=== PATIENT | female | born 1990 | race American Indian/Alaskan Native ===

== ENCOUNTER 2016-06-01 13:25 | Emergency (ER) | payer SELFPAY ==
[2016-06-01 14:02] VITALS: BP 108/73
--- NOTE | 2016-06-01 15:19 | XRay Report ---
FINAL REPORT EXAM: XR ANKLE 2V LT HISTORY: swelling TECHNIQUE: Three views left ankle PRIORS: None. FINDINGS: No fracture is identified. No dislocation seen. Ankle mortise is intact no evidence of joint space widening. No erosive or degenerative changes are identified. No evidence of joint effusion. IMPRESSION: Negative ankle series
--- NOTE | 2016-06-01 19:36 | Emergency Department Report ---
Entered by CITLALLI AMADO, acting as scribe for GREG GARCIA PA. ED Lower Extremity HPI - General Chief Complaint: Extremity Injury, Lower Stated Complaint: LEFT ANKLE SWELLING Time Seen by Provider: 06/01/16 14:19 Source: patient Mode of arrival: Ambulatory Limitations: No Limitations - History of Present Illness Initial Comments: 26 year old female with no significant PMHx presents to the ED c/o left ankle pain and swelling that began 2 weeks ago, worsening a week ago. Rates left ankle pain an 8/10 in severity and throbbing in quality. Denies any left ankle injury, chest pain, SOB, numbness, and tingling. Pain worsens with movement, walking, and palpation. Patient reports applying Bengay at home with no relief. Denies tobacco use and alcohol consumption. LMP 05/02/2016. Complaint: other (left ankle pain and edema) Onset/Timin -: week(s) Injury: Ankle: Left (left ankle pain/edema, but no left ankle injury) Type of Injury: unknown Place: home Severity: moderate Severity scale (0 -10): 8 Improves With: nothing (applied Bengay with no relief) Worsens With: weight bearing, movement, palpation Context: other (unknown) Associated Symptoms: swelling (left ankle), able to partially bear weight. denies: numbness, tingling, other (chest pain, SOB) Treatments Prior to Arrival: cold therapy - Related Data Home Medications Medication Instructions Recorded Confirmed Last Taken Pnv with Ca,No.72/Iron/FA 1 tab PO DAILY 02/12/13 02/12/13 02/12/13 08:00 [ Plus Tablet] Previous Rx's Medication Instructions Recorded Last Taken Type hydrOXYzine HCL [Atarax] 25 mg PO Q6HR PRN #20 tablet 06/22/15 Unknown Rx methylPREDNISolone [Medrol] 4 mg PO QAM #1 tab.ds.pk 06/22/15 Unknown Rx Doxycycline [Vibramycin CAP] 100 mg PO Q12HR #28 capsule 04/21/16 Unknown Rx Nitrofurantoin [place]/M-Cryst 100 mg PO Q12HR #14 capsule 04/21/16 Unknown Rx [Macrobid CAP] metroNIDAZOLE [Flagyl TAB] 500 mg PO Q12HR #14 tab 04/21/16 Unknown Rx Ibuprofen [Motrin] 600 mg PO Q8H PRN #15 tablet 06/01/16 Unknown Rx Allergies Allergy/AdvReac Type Severity Reaction Status Date / Time No Known Allergies Allergy Verified 04/21/16 15:09 ED Review of Systems Comment: All other systems reviewed and negative Constitutional: denies: chills, fever ENT: denies: throat pain Respiratory: no symptoms reported. denies: cough, orthopnea, shortness of breath, SOB with exertion, SOB at rest Cardiovascular: denies: chest pain, palpitations, edema, syncope Gastrointestinal: denies: abdominal pain, nausea, vomiting Musculoskeletal: joint swelling (left ankle), arthralgia, other (left ankle pain ). denies: back pain Skin: denies: rash Neurological: denies: headache, numbness, paresthesias, confusion, abnormal gait , vertigo ED Past Medical Hx - Past Medical History Previous Medical History?: No Hx Seizures: No - Surgical History Past Surgical History?: No - Family History Family history: no significant - Social History Smoking Status: Never Smoker Substance Use Type: Non Opiate Pain, Other - Medications Home Medications: Home Medications Medication Instructions Recorded Confirmed Last Taken Type Pnv with Ca,No.72/Iron/FA 1 tab PO DAILY 02/12/13 02/12/13 02/12/13 08:00 History [ Plus Tablet] hydrOXYzine HCL [Atarax] 25 mg PO Q6HR PRN #20 tablet 06/22/15 Unknown Rx methylPREDNISolone [Medrol] 4 mg PO QAM #1 tab.ds.pk 06/22/15 Unknown Rx Doxycycline [Vibramycin CAP] 100 mg PO Q12HR #28 capsule 04/21/16 Unknown Rx Nitrofurantoin [place]/M-Cryst 100 mg PO Q12HR #14 capsule 04/21/16 Unknown Rx [Macrobid CAP] metroNIDAZOLE [Flagyl TAB] 500 mg PO Q12HR #14 tab 04/21/16 Unknown Rx Ibuprofen [Motrin] 600 mg PO Q8H PRN #15 tablet 06/01/16 Unknown Rx ED Physical Exam - General Limitations: No Limitations General appearance: alert, in no apparent distress - Head Head exam: Present: atraumatic, normocephalic, normal inspection - Eye Eye exam: Present: normal appearance, EOMI Pupils: Present: normal accommodation - ENT ENT exam: Present: normal exam, normal orophraynx, mucous membranes moist, TM's normal bilaterally, normal external ear exam - Neck Neck exam: Present: normal inspection, full ROM. Absent: tenderness, lymphadenopathy - Respiratory Respiratory exam: Present: normal lung sounds bilaterally. Absent: respiratory distress, wheezes, rales, rhonchi, chest wall tenderness - Cardiovascular Cardiovascular Exam: Present: regular rate, normal rhythm, normal heart sounds, other (S1/S2) - GI/Abdominal GI/Abdominal exam: Present: soft, normal bowel sounds. Absent: distended, tenderness, guarding, rebound, rigid - Extremities Exam Extremities exam: Present: normal inspection, tenderness (left lateral ankle), normal capillary refill, joint swelling. Absent: full ROM (pain with plantar flexion), pedal edema, calf tenderness - Expanded Lower Extremity Exam Left Hip exam: Present: normal inspection, full ROM, pelvic stability. Absent: tenderness, swelling, abrasion, laceration, ecchymosis, deformity, crepidus, dislocation, erythema, external rotation, internal rotation, shortening Upper Leg exam: Present: normal inspection, full ROM. Absent: tenderness, swelling, abrasion, laceration, ecchymosis, deformity, crepidus, dislocation, erythema Knee exam: Present: normal inspection, full ROM, full knee extension. Absent: tenderness, swelling, abrasion, laceration, ecchymosis, deformity, crepidus, dislocation, erythema, effusion, pain w/ pronation/supination Lower Leg exam: Present: normal inspection, full ROM. Absent: tenderness Ankle exam: Present: tenderness (left lateral), swelling (moderate left lateral ankle). Absent: full ROM (pain with plantar flexion, but not with dorsal flexion), abrasion, laceration, ecchymosis, deformity, crepidus, dislocation, erythema Foot/Toe exam: Present: normal inspection, full ROM. Absent: tenderness, swelling, abrasion, ecchymosis, deformity, crepidus, dislocation, erythema, amputation, puncture wound, foreign body, calcaneal tenderness, tenderness at base of 5th metatarsal, nail avulsion, subungual hematoma Neuro vascular tendon exam: Present: no vascular compromise, significant pain with passive ROM of distal joint. Absent: pulse deficit, abnormal cap refill, motor deficit, sensory deficit, tendon deficit, extremity cold to touch, pallor , abnormal 2-point discrimination, decreased fine/light touch, foot drop, peroneal nerve deficit Gait: Positive: antalgic - Back Exam Back exam: Present: normal inspection, full ROM. Absent: tenderness, CVA tenderness (R), CVA tenderness (L), muscle spasm, paraspinal tenderness, vertebral tenderness, rash noted - Neurological Exam Neurological exam: Present: alert, oriented X3, normal gait, reflexes normal. Absent: motor sensory deficit - Psychiatric Psychiatric exam: Present: normal affect, normal mood - Skin Skin exam: Present: warm, dry, intact, other (left ankle edema and TTP). Absent : rash ED Course Vital Signs 06/01/16 13:58 Temperature 97.8 F Pulse Rate 64 Respiratory 20 Rate Blood Pressure 108/73 O2 Sat by Pulse 98 Oximetry - Reevaluation(s) Reevaluation #1: 06/01/16 19:35 Refuses motrin - Orthopedic Splinting/Casting Injury #1 Side: left Lower Extremity Injury Location: ankle Lower Extremity Immobilizer: Iglesia wrap ED Lower Extremity MDM - Radiology Data Radiology results: report reviewed X-ray of left ankle revealed no acute findings. - Medical Decision Making ED course: She did not want any pain medication in emergency room. She is with left outer ankle swelling which appears to be ankle sprain but cannot remember injuring her ankle. Ankle is tender to palpate with mild swelling. Low risk group for DVT. Unlikely according to [facility] DVT studies. The risk for PE based on protocol. See procedure note for splinting patient discharged home with prescription for Motrin and to rest, ice, compress and elevate area and follow- up with orthopedic doctor in the next 2-3 days. ED Disposition Clinical Impression: Arthralgia of left ankle Left ankle sprain Qualifiers: Encounter type: initial encounter Involved ligament of ankle: unspecified ligament Qualified Code(s): S93.402A - Sprain of unspecified ligament of left ankle, initial encounter Disposition: DISCHARGED TO HOME OR SELFCARE Is pt being admited?: No Does the pt Need Aspirin: No Condition: Stable Instructions: Ankle Sprain (ED), Arthralgia (ED), Ankle Exercises (GEN) Additional Instructions: Please rest, ice, compress and elevate the area for the next couple days. Follow-up with orthopedic doctor in 2-3 days. Prescriptions: Ibuprofen [Motrin] 600 mg PO Q8H PRN #15 tablet PRN Reason: Pain Referrals: JAMAL PEÑA MD [Staff Physician] - 3-5 Days [facility], [Primary Care Provider] - 2-3 Days [facility] [Outside] - 2-3 Days Forms: Work/School Release Form(ED) This documentation as recorded by the [employer] lu JASMINE,accurately reflects the service I personally performed and the decisions made by me,GREG GARCIA PA.
== END 2016-06-01 15:59 | disposition home or self-care (01) ==
LOC: ED 13:25
DX: S93.402A Sprain of unspecified ligament of left ankle, initial encounter (principal); X58.XXXA Exposure to other specified factors, initial encounter; Y93.89 Activity, other specified; Y92.89 Other specified places as the place of occurrence of the external cause; Y99.8 Other external cause status

== ENCOUNTER 2016-07-27 11:59 | Emergency (ER) | payer SELFPAY ==
[2016-07-27] MEDS ORDERED: ULTRAM PO ONE (12:43)
[2016-07-27] MEDS ORDERED: AUGMENTIN 875 MG PO ONE (12:49)
--- NOTE | 2016-07-27 12:54 | Emergency Department Report ---
ED ENT HPI - General Chief complaint: Earache Stated complaint: RT EAR BLEEDING /PAIN Time Seen by Provider: 07/27/16 12:33 Source: patient Mode of arrival: Ambulatory Limitations: No Limitations - History of Present Illness Initial comments: 26-year-old with no significant medical history presents to the hospital complains of right ear pain and bleeding upon waking up this morning. Patient denies putting any foreign bodies in her ear and denies any foreign body sensation currently. She did however admit to blowing her nose hard recently. Denies persistent cough or cold symptoms or fever. No reports of trauma. 10/26 right-sided constant ear pain. - Related Data Home Medications Medication Instructions Recorded Confirmed Last Taken Pnv with Ca,No.72/Iron/FA 1 tab PO DAILY 02/12/13 02/12/13 02/12/13 08:00 [ Plus Tablet] Previous Rx's Medication Instructions Recorded Last Taken Type hydrOXYzine HCL [Atarax] 25 mg PO Q6HR PRN #20 tablet 06/22/15 Unknown Rx methylPREDNISolone [Medrol] 4 mg PO QAM #1 tab.ds.pk 06/22/15 Unknown Rx Doxycycline [Vibramycin CAP] 100 mg PO Q12HR #28 capsule 04/21/16 Unknown Rx Nitrofurantoin [place]/M-Cryst 100 mg PO Q12HR #14 capsule 04/21/16 Unknown Rx [Macrobid CAP] metroNIDAZOLE [Flagyl TAB] 500 mg PO Q12HR #14 tab 04/21/16 Unknown Rx Ibuprofen [Motrin] 600 mg PO Q8H PRN #15 tablet 06/01/16 Unknown Rx Amoxicillin/K Clav Tab [Augmentin 1 tab PO Q12HR #20 tab 07/27/16 Unknown Rx 875 mg] traMADol [Ultram 50 MG tab] 50 mg PO Q6HR PRN #20 tablet 07/27/16 Unknown Rx Allergies Allergy/AdvReac Type Severity Reaction Status Date / Time No Known Allergies Allergy Verified 04/21/16 15:09 ED Dental HPI - General Chief complaint: Earache Stated complaint: RT EAR BLEEDING /PAIN Time Seen by Provider: 07/27/16 12:33 Source: patient Mode of arrival: Ambulatory Limitations: No Limitations - Related Data Home Medications Medication Instructions Recorded Confirmed Last Taken Pnv with Ca,No.72/Iron/FA 1 tab PO DAILY 02/12/13 02/12/1302/12/13 08:00 [ Plus Tablet] Previous Rx's Medication Instructions Recorded Last Taken Type hydrOXYzine HCL [Atarax] 25 mg PO Q6HR PRN #20 tablet 06/22/15 Unknown Rx methylPREDNISolone [Medrol] 4 mg PO QAM #1 tab.ds.pk 06/22/15 Unknown Rx Doxycycline [Vibramycin CAP] 100 mg PO Q12HR #28 capsule 04/21/16 Unknown Rx Nitrofurantoin [place]/M-Cryst 100 mg PO Q12HR #14 capsule 04/21/16 Unknown Rx [Macrobid CAP] metroNIDAZOLE [Flagyl TAB] 500 mg PO Q12HR #14 tab 04/21/16 Unknown Rx Ibuprofen [Motrin] 600 mg PO Q8H PRN #15 tablet 06/01/16 Unknown Rx Amoxicillin/K Clav Tab [Augmentin 1 tab PO Q12HR #20 tab 07/27/16 Unknown Rx 875 mg] traMADol [Ultram 50 MG tab] 50 mg PO Q6HR PRN #20 tablet 07/27/16 Unknown Rx Allergies Allergy/AdvReac Type Severity Reaction Status Date / Time No Known Allergies Allergy Verified 04/21/16 15:09 ED Review of Systems ROS: Stated complaint: RT EAR BLEEDING /PAIN Other details as noted in HPI Comment: All other systems reviewed and negative Other: Constitutional: No fevers chills or weight loss Eyes: No eye pain visual changes or discharge ENT: As per HPI Neck: Denies pain Respiratory: Denies cough wheezing shortness of breath Cardiovascular: Denies chest pain, palpitations, syncope GI: Denies abdominal pain : Denies dysuria Musculoskeletal: Denies back pain, joint swelling Skin: Denies rash, lesions, erythema Neurologic: Denies headache, numbness, weakness Psychiatric: Denies suicidal ideation, hallucinations ED Past Medical Hx - Past Medical History Previous Medical History?: Yes Hx Seizures: No Additional medical history: Vaginal dleivery x 2 - Surgical History Past Surgical History?: Yes Additional Surgical History: x 1 - Social History Smoking Status: Never Smoker Substance Use Type: None - Medications Home Medications: Home Medications Medication Instructions Recorded Confirmed Last Taken Type Pnv with Ca,No.72/Iron/FA 1 tab PO DAILY 02/12/13 02/12/13 02/12/13 08:00 History [ Plus Tablet] hydrOXYzine HCL [Atarax] 25 mg PO Q6HR PRN #20 tablet 06/22/15 Unknown Rx methylPREDNISolone [Medrol] 4 mg PO QAM #1 tab.ds.pk 06/22/15 Unknown Rx Doxycycline [Vibramycin CAP] 100 mg PO Q12HR #28 capsule 04/21/16 Unknown Rx Nitrofurantoin [place]/M-Cryst 100 mg PO Q12HR #14 capsule 04/21/16 Unknown Rx [Macrobid CAP] metroNIDAZOLE [Flagyl TAB] 500 mg PO Q12HR #14 tab 04/21/16 Unknown Rx Ibuprofen [Motrin] 600 mg PO Q8H PRN #15 tablet 06/01/16 Unknown Rx Amoxicillin/K Clav Tab [Augmentin 1 tab PO Q12HR #20 tab 07/27/16 Unknown Rx 875 mg] traMADol [Ultram 50 MG tab] 50 mg PO Q6HR PRN #20 tablet 07/27/16 Unknown Rx ED Physical Exam - General Limitations: No Limitations - Other Other exam information: General: No limitations, patient is alert in no acute distress Head exam: Atraumatic, normocephalic Eyes exam: Normal appearance, pupils equal reactive to light, extraocular movements intact ENT: Right year with blood noted in the canal and along the TM. Small perforation at approximately 4:00 Neck exam: Normal inspection, full range of motion, no meningismus nontender Respiratory exam: Clear to auscultation bilateral, no wheezes, rales, crackles Cardiovascular: Normal rate and rhythm, normal heart sounds Abdomen: Soft, nondistended, and nontender, with normal bowel sounds, no rebound, or guarding Extremity: Full range of motion normal inspection no deformity Back: Normal Inspection, full range of motion, no tenderness Neurologic: Alert, oriented x3, cranial nerves intact, no motor or sensory deficit Psychiatric: normal affect, normal mood Skin: Warm, dry, intact ED Course Vital Signs 07/27/16 12:06 Temperature 98.2 F Pulse Rate 81 Respiratory 16 Rate Blood Pressure 112/72 O2 Sat by Pulse 98 Oximetry - Reevaluation(s) Reevaluation #1: 07/27/16 12:52 Tramadol and Augmentin ordered ED Medical Decision Making - Medical Decision Making Patient has a perforated each or this could be due to blood in her nose really hard. She will be discharged with antibiotics and pain medication. Outpatient follow-up with ENT would be recommended - Differential Diagnosis otitis media, for body, trauma, perforation, otitis externa Critical Care Time: No Critical care attestation.: If time is entered above; I have spent that time in minutes in the direct care of this critically ill patient, excluding procedure time. ED Disposition Clinical Impression: Perforation of ear drum Qualifiers: Laterality: right Qualified Code(s): H72.91 - Unspecified perforation of tympanic membrane, right ear Disposition: TO HOME OR SELFCARE Is pt being admited?: No Does the pt Need Aspirin: No Condition: Stable Instructions: Ruptured Eardrum (ED) Additional Instructions: Follow-up with the ENT doctor provided. Take the medications as prescribed. Use a good Rx card to make it medication prescriptions more affordable. Prescriptions: Amoxicillin/K Clav Tab [Augmentin 875 mg] 1 tab PO Q12HR #20 tab traMADol [Ultram 50 MG tab] 50 mg PO Q6HR PRN #20 tablet PRN Reason: Pain Referrals: [facility] [Provider Group] - 3-5 Days NATALIE CEDILLO MD [Staff Physician] - 3-5 Days (ENT (ear nose throat) doctor) Time of Disposition: 12:57
[2016-07-27] MEDS ORDERED: NORCO 5/325 PO ONE (13:02)
[2016-07-27 13:12] VITALS: BP 104/64
== END 2016-07-27 13:22 | disposition home or self-care (01) ==
LOC: ED 11:59
DX: H72.91 Unspecified perforation of tympanic membrane, right ear (principal)
CPT/HCPCS: 99282

== ENCOUNTER 2016-08-17 18:06 | Emergency (ER) | payer SELFPAY ==
[2016-08-17 18:37] VITALS: BP 115/81
[2016-08-17] MEDS ORDERED: EAR WAX DROPS AU ONE (20:41)
--- NOTE | 2016-08-17 22:50 | Emergency Department Report ---
Entered by CITLALLI AMADO, acting as scribe for ANYA RICKS NP. ED ENT HPI - General Chief complaint: Earache Stated complaint: RT EAR PAIN/BLEEDING Time Seen by Provider: 08/17/16 20:24 Source: patient Mode of arrival: Ambulatory Limitations: No Limitations - History of Present Illness Initial comments: 26 y/o female with no significant PMHx presents to the ED c/o sharp right ear pain that began this morning. Rates pain a 10/10 in severity. Patient states she was seen in this ED one month ago and was diagnosed with a "hole in right ear brain." Patient reports associated white drainage and blood from right ear, but she denies fever, chills, nausea, vomiting, hearing loss, headache, numbness , and tingling. Took Motrin with no relief. Notes she has an appointment with an ENT specialist in 3 months. NKDA. FUENTES complaint: ear pain (right) -: This morning Location: R ear Severity: severe Severity scale (0 -10): 10 Quality: sharp Consistency: constant Improves with: none Worsens with: none Associated Symptoms: discharge from ear (white discharge and blood). denies: fever, cough, toothache, pain with swallowing, sore throat, hearing loss, rhinorrhea - Related Data Home Medications Medication Instructions Recorded Confirmed Last Taken Pnv with Ca,No.72/Iron/FA 1 tab PO DAILY 02/12/13 02/12/13 02/12/13 08:00 [ Plus Tablet] Previous Rx's Medication Instructions Recorded Last Taken Type hydrOXYzine HCL [Atarax] 25 mg PO Q6HR PRN #20 tablet 06/22/15 Unknown Rx methylPREDNISolone [Medrol] 4 mg PO QAM #1 tab.ds.pk 06/22/15 Unknown Rx Doxycycline [Vibramycin CAP] 100 mg PO Q12HR #28 capsule 04/21/16 Unknown Rx Nitrofurantoin [place]/M-Cryst 100 mg PO Q12HR #14 capsule 04/21/16 Unknown Rx [Macrobid CAP] metroNIDAZOLE [Flagyl TAB] 500 mg PO Q12HR #14 tab 04/21/16 Unknown Rx Ibuprofen [Motrin] 600 mg PO Q8H PRN #15 tablet 06/01/16 Unknown Rx Amoxicillin/K Clav Tab [Augmentin 1 tab PO Q12HR #20 tab 07/27/16 Unknown Rx 875 mg] HYDROcodone/APAP 5-325 [[place] 1 each PO Q6HR PRN #20 tablet 07/27/16 Unknown Rx 5/325] Neomy/Polymyx B/Hc Otic Susp 4 drops OTIC TID 7 Days 08/17/16 Unknown Rx [Cortisporin (Otic) Susp] traMADol [Ultram] 50 mg PO Q6HR PRN #6 tablet 08/17/16 Unknown Rx Allergies Allergy/AdvReac Type Severity Reaction Status Date / Time No Known Allergies Allergy Verified 07/27/16 13:06 ED Dental HPI - General Chief complaint: Earache Stated complaint: RT EAR PAIN/BLEEDING Time Seen by Provider: 08/17/16 20:24 Source: patient Mode of arrival: Ambulatory Limitations: No Limitations - History of Present Illness MD complaint: ear pain (right) -: This morning Severity: severe (11/25) Quality: sharp Consistency: constant Improves with: none Worsens with: none Dental Associated Symptons: Yes: Earache. No: Headache, Sore Throat, Gum Swelling, Fever - Related Data Home Medications Medication Instructions Recorded Confirmed Last Taken Pnv with Ca,No.72/Iron/FA 1 tab PO DAILY 02/12/13 02/12/13 02/12/13 08:00 [ Plus Tablet] Previous Rx's Medication Instructions Recorded Last Taken Type hydrOXYzine HCL [Atarax] 25 mg PO Q6HR PRN #20 tablet 06/22/15 Unknown Rx methylPREDNISolone [Medrol] 4 mg PO QAM #1 tab.ds.pk 06/22/15 Unknown Rx Doxycycline [Vibramycin CAP] 100 mg PO Q12HR #28 capsule 04/21/16 Unknown Rx Nitrofurantoin [place]/M-Cryst 100 mg PO Q12HR #14 capsule 04/21/16 Unknown Rx [Macrobid CAP] metroNIDAZOLE [Flagyl TAB] 500 mg PO Q12HR #14 tab 04/21/16 Unknown Rx Ibuprofen [Motrin] 600 mg PO Q8H PRN #15 tablet 06/01/16 Unknown Rx Amoxicillin/K Clav Tab [Augmentin 1 tab PO Q12HR #20 tab 07/27/16 Unknown Rx 875 mg] HYDROcodone/APAP 5-325 [[place] 1 each PO Q6HR PRN #20 tablet 07/27/16 Unknown Rx 5/325] Neomy/Polymyx B/Hc Otic Susp 4 drops OTIC TID 7 Days 08/17/16 Unknown Rx [Cortisporin (Otic) Susp] traMADol [Ultram] 50 mg PO Q6HR PRN #6 tablet 08/17/16 Unknown Rx Allergies Allergy/AdvReac Type Severity Reaction Status Date / Time No Known Allergies Allergy Verified 07/27/16 13:06 ED Review of Systems Comment: All other systems reviewed and negative Constitutional: denies: chills, fever Eyes: denies: eye pain, eye discharge, vision change ENT: ear pain (right), other (white discharge and blood from right ear). denies : throat pain, dental pain, hearing loss, epistaxis, congestion Respiratory: denies: cough, shortness of breath, wheezing Cardiovascular: denies: chest pain, palpitations Gastrointestinal: denies: abdominal pain, nausea, vomiting, diarrhea Musculoskeletal: denies: back pain, joint swelling, arthralgia Skin: denies: rash, lesions Neurological: denies: headache, weakness, numbness, paresthesias ED Past Medical Hx - Past Medical History Hx Seizures: No Additional medical history: Vaginal dleivery x 2 - Surgical History Additional Surgical History: x 1 - Social History Smoking Status: Never Smoker Substance Use Type: None - Medications Home Medications: Home Medications Medication Instructions Recorded Confirmed Last Taken Type Pnv with Ca,No.72/Iron/FA 1 tab PO DAILY 02/12/13 02/12/13 02/12/13 08:00 History [ Plus Tablet] hydrOXYzine HCL [Atarax] 25 mg PO Q6HR PRN #20 tablet 06/22/15 Unknown Rx methylPREDNISolone [Medrol] 4 mg PO QAM #1 tab.ds.pk 06/22/15 Unknown Rx Doxycycline [Vibramycin CAP] 100 mg PO Q12HR #28 capsule 04/21/16 Unknown Rx Nitrofurantoin [place]/M-Cryst 100 mg PO Q12HR #14 capsule 04/21/16 Unknown Rx [Macrobid CAP] metroNIDAZOLE [Flagyl TAB] 500 mg PO Q12HR #14 tab 04/21/16 Unknown Rx Ibuprofen [Motrin] 600 mg PO Q8H PRN #15 tablet 06/01/16 Unknown Rx Amoxicillin/K Clav Tab [Augmentin 1 tab PO Q12HR #20 tab 07/27/16 Unknown Rx 875 mg] HYDROcodone/APAP 5-325 [[place] 1 each PO Q6HR PRN #20 tablet 07/27/16 Unknown Rx 5/325] Neomy/Polymyx B/Hc Otic Susp 4 drops OTIC TID 7 Days 08/17/16 Unknown Rx [Cortisporin (Otic) Susp] traMADol [Ultram] 50 mg PO Q6HR PRN #6 tablet 08/17/16 Unknown Rx ED Physical Exam - General Limitations: No Limitations General appearance: alert, in no apparent distress - Head Head exam: Present: atraumatic, normocephalic - Eye Eye exam: Present: normal appearance, PERRL, EOMI Pupils: Present: normal accommodation - ENT ENT exam: Present: mucous membranes moist, normal external ear exam, other (R tragus tender). Absent: TM's normal bilaterally (right ear cerumen impaction) - Expanded ENT Exam Expanded Ear exam: Present: normal external inspection TM/Canal exam: Cerumen Impaction: Right TM (moderate amount of wax sitting at bottom R ear canal, TM visualized and wnl. ) Mouth exam: Present: normal external inspection. Absent: drooling, trismus Teeth exam: Present: normal inspection Throat exam: Positive: normal inspection - Neck Neck exam: Present: normal inspection, full ROM. Absent: tenderness, meningismus, lymphadenopathy - Respiratory Respiratory exam: Present: normal lung sounds bilaterally. Absent: respiratory distress, wheezes, rales, rhonchi, stridor - Cardiovascular Cardiovascular Exam: Present: regular rate, normal rhythm, normal heart sounds. Absent: systolic murmur, diastolic murmur, rubs, gallop - GI/Abdominal GI/Abdominal exam: Present: soft, normal bowel sounds. Absent: distended - Extremities Exam Extremities exam: Present: normal inspection, full ROM - Back Exam Back exam: Present: normal inspection, full ROM - Neurological Exam Neurological exam: Present: alert, oriented X3 - Psychiatric Psychiatric exam: Present: normal affect, normal mood - Skin Skin exam: Present: warm, dry, intact. Absent: rash ED Course Vital Signs 08/17/16 18:29 Temperature 98.0 F Pulse Rate 81 Respiratory 20 Rate Blood Pressure 115/81 O2 Sat by Pulse 100 Oximetry - Reevaluation(s) Reevaluation #1: 08/17/16 22:33 PT aware that no ruptured TM appreciated on exam. no canal swelling or redness noted on exam. The only abnormal finding was the wax that was noticed in the canal. PT gave verbal consent for ear irrigation. After Dubrox was instilled, pt became agitated and states, "this doesn't make sense, I want my discharge paperwork." Reevaluation #2: 08/17/16 22:50 PT walked out of ED without any dc paperwork - Pulse Oximetry Interpretation Digit-Finger Initial Pulse Oximetry Readin Actions Taken: none ED Medical Decision Making - Differential Diagnosis om, oe, fb, ruptured tm Critical Care Time: No ED Disposition Clinical Impression: Otalgia, right ear, Excessive cerumen in right ear canal Disposition: ELOPED Is pt being admited?: No Does the pt Need Aspirin: No Condition: Stable Instructions: Cerumen Impaction (ED), Earache (ED) Additional Instructions: Do not use q- tips in your ear Follow up with PCP in 3-5 days Return to the ED if worsening or concerns Prescriptions: Neomy/Polymyx B/Hc Otic Susp [Cortisporin (Otic) Susp] 4 drops OTIC TID 7 Days traMADol [Ultram] 50 mg PO Q6HR PRN #6 tablet PRN Reason: Pain Referrals: BLANCA TERRAZAS MD [Primary Care Provider] - 3-5 Days Time of Disposition: 22:38 This documentation as recorded by the INGRIS lu JASMINE,accurately reflects the service I personally performed and the decisions made by me,ANYA RICKS NP.
== END 2016-08-17 23:17 | disposition left against medical advice (07) ==
LOC: ED 18:06
DX: H92.01 Otalgia, right ear (principal); H61.21 Impacted cerumen, right ear
CPT/HCPCS: 99283

== ENCOUNTER 2017-05-22 03:12 | Emergency (ER) | payer MEDICAID ==
[2017-05-22 04:08] LABS: Basophils % (Auto) 0.6 % (0.0-1.8); Eosinophils # (Auto) 0.2 K/mm3 (0.0-0.4); Eosinophils % (Auto) 2.7 % (0.0-4.3); Hematocrit 38.1 % (30.3-42.9); Hemoglobin 12.5 gm/dl (10.1-14.3); Lymphocytes % (Auto) 31.3 % (13.4-35.0); Mean Corpuscular HGB Conc 33 % (30-34); Mean Corpuscular Hemoglobin 29 pg (28-32); Mean Corpuscular Volume 89 fl (79-97); Monocytes # (Auto) 0.5 K/mm3 (0.0-0.8); Monocytes % (Auto) 8.1 % (0.0-7.3); Platelet Count 174 K/mm3 (140-440); Red Blood Count 4.28 M/mm3 (3.65-5.03); Red Cell Distribution Width 13.9 % (13.2-15.2)
[2017-05-22 04:27] LABS: BUN/Creatinine Ratio 17; Blood Urea Nitrogen 12 mg/dL (7-17); Calcium 8.4 mg/dL (8.4-10.2); Hemolysis Index 39
[2017-05-22 04:55] LABS: Bacteria,Urine 1+ /HPF (Negative); Bilirubin,Urine NEG (Negative); Blood,Urine NEG (Negative); Color,Urine Yellow (Yellow); Mucus,Urine FEW /HPF; Protein,Urine <15 mg/dL mg/dL (Negative)
--- NOTE | 2017-05-22 07:13 | Emergency Department Report ---
ED Female HPI - General Chief complaint: Urogenital-Female Stated complaint: CAN NOT HOLD URINE IN Source: patient Mode of arrival: Ambulatory Limitations: No Limitations - History of Present Illness Initial comments: Patient complains of burning with urination that started last night. Patient denies any vaginal discharge and also denies any concern for STDs MD Complaint: dysuria -: Sudden Radiation: non-radiating Severity: mild Severity scale (0 -10): 2 Quality: burning Consistency: constant Improves with: none Worsens with: none Are you Now?: No Associated Symptoms: denies other symptoms. denies: vaginal discharge, vaginal bleeding, abdominal pain, nausea/vomiting, fever/chills - Related Data Home Medications Medication Instructions Recorded Confirmed Last Taken Pnv with Ca,No.72/Iron/FA 1 tab PO DAILY 02/12/13 02/12/13 02/12/13 08:00 [ Plus Tablet] Previous Rx's Medication Instructions Recorded Last Taken Type hydrOXYzine HCL [Atarax] 25 mg PO Q6HR PRN #20 tablet 06/22/15 Unknown Rx methylPREDNISolone [Medrol] 4 mg PO QAM #1 tab.ds.pk 06/22/15 Unknown Rx Doxycycline [Vibramycin CAP] 100 mg PO Q12HR #28 capsule 04/21/16 Unknown Rx Nitrofurantoin [place]/M-Cryst 100 mg PO Q12HR #14 capsule 04/21/16 Unknown Rx [Macrobid CAP] metroNIDAZOLE [Flagyl TAB] 500 mg PO Q12HR #14 tab 04/21/16 Unknown Rx Ibuprofen [Motrin] 600 mg PO Q8H PRN #15 tablet 06/01/16 Unknown Rx Amoxicillin/K Clav Tab [Augmentin 1 tab PO Q12HR #20 tab 07/27/16 Unknown Rx 875 mg] HYDROcodone/APAP 5-325 [[place] 1 each PO Q6HR PRN #20 tablet 07/27/16 Unknown Rx 5/325] Neomy/Polymyx B/Hc Otic Susp 4 drops OTIC TID 7 Days bottle 08/17/16 Unknown Rx [Cortisporin (Otic) Susp] traMADol [Ultram] 50 mg PO Q6HR PRN #6 tablet 08/17/16 Unknown Rx Ibuprofen [Motrin] 800 mg PO Q8HR PRN #30 tablet 12/22/16 Unknown Rx traMADol [Ultram 50 MG tab] 50 mg PO Q6HR PRN #20 tablet 12/22/16 Unknown Rx Cephalexin [Keflex] 500 mg PO Q8HR #21 cap 05/22/17 Unknown Rx Phenazopyridine [Pyridium] 100 mg PO TID 2 Days #6 tab 05/22/17 Unknown Rx Allergies Allergy/AdvReac Type Severity Reaction Status Date / Time No Known Allergies Allergy Verified 07/27/16 13:06 ED Review of Systems ROS: Stated complaint: CAN NOT HOLD URINE IN Other details as noted in HPI Constitutional: denies: chills, fever Eyes: denies: eye pain, eye discharge, vision change ENT: denies: ear pain, throat pain Respiratory: denies: cough, shortness of breath, wheezing Cardiovascular: denies: chest pain, palpitations Endocrine: no symptoms reported Gastrointestinal: denies: abdominal pain, nausea, diarrhea Genitourinary: urgency, dysuria, frequency. denies: discharge Musculoskeletal: denies: back pain, joint swelling, arthralgia Skin: denies: rash, lesions Neurological: denies: headache, weakness, paresthesias Psychiatric: denies: anxiety, depression Hematological/Lymphatic: denies: easy bleeding, easy bruising ED Past Medical Hx - Past Medical History Previous Medical History?: No Hx Seizures: No Additional medical history: Vaginal dleivery x 1, thyroid - Surgical History Past Surgical History?: Yes Additional Surgical History: x 2 - Social History Smoking Status: Never Smoker Substance Use Type: None, Alcohol - Medications Home Medications: Home Medications Medication Instructions Recorded Confirmed Last Taken Type Pnv with Ca,No.72/Iron/FA 1 tab PO DAILY 02/12/13 02/12/13 02/12/13 08:00 History [ Plus Tablet] hydrOXYzine HCL [Atarax] 25 mg PO Q6HR PRN #20 tablet 06/22/15 Unknown Rx methylPREDNISolone [Medrol] 4 mg PO QAM #1 tab.ds.pk 06/22/15 Unknown Rx Doxycycline [Vibramycin CAP] 100 mg PO Q12HR #28 capsule 04/21/16 Unknown Rx Nitrofurantoin [place]/M-Cryst 100 mg PO Q12HR #14 capsule 04/21/16 Unknown Rx [Macrobid CAP] metroNIDAZOLE [Flagyl TAB] 500 mg PO Q12HR #14 tab 04/21/16 Unknown Rx Ibuprofen [Motrin] 600 mg PO Q8H PRN #15 tablet 06/01/16 Unknown Rx Amoxicillin/K Clav Tab [Augmentin 1 tab PO Q12HR #20 tab 07/27/16 Unknown Rx 875 mg] HYDROcodone/APAP 5-325 [[place] 1 each PO Q6HR PRN #20 tablet 07/27/16 Unknown Rx 5/325] Neomy/Polymyx B/Hc Otic Susp 4 drops OTIC TID 7 Days bottle 08/17/16 Unknown Rx [Cortisporin (Otic) Susp] traMADol [Ultram] 50 mg PO Q6HR PRN #6 tablet 08/17/16 Unknown Rx Ibuprofen [Motrin] 800 mg PO Q8HR PRN #30 tablet 12/22/16 Unknown Rx traMADol [Ultram 50 MG tab] 50 mg PO Q6HR PRN #20 tablet 12/22/16 Unknown Rx Cephalexin [Keflex] 500 mg PO Q8HR #21 cap 05/22/17 Unknown Rx Phenazopyridine [Pyridium] 100 mg PO TID 2 Days #6 tab 05/22/17 Unknown Rx ED Physical Exam - General Limitations: No Limitations General appearance: alert, in no apparent distress - Head Head exam: Present: atraumatic, normocephalic - Eye Eye exam: Present: normal appearance - ENT ENT exam: Present: mucous membranes moist - Neck Neck exam: Present: normal inspection - Respiratory Respiratory exam: Present: normal lung sounds bilaterally. Absent: respiratory distress - Cardiovascular Cardiovascular Exam: Present: regular rate, normal rhythm. Absent: systolic murmur, diastolic murmur, rubs, gallop - GI/Abdominal GI/Abdominal exam: Present: soft, normal bowel sounds - External exam: Present: other (exam deferred) Speculum exam: Present: other (exam deferred) Bi-manual exam: Present: other (exam deferred) - Extremities Exam Extremities exam: Present: normal inspection - Back Exam Back exam: Present: normal inspection - Neurological Exam Neurological exam: Present: alert, oriented X3 - Psychiatric Psychiatric exam: Present: normal affect, normal mood - Skin Skin exam: Present: warm, dry, intact, normal color. Absent: rash ED Course Vital Signs 05/22/17 05/22/17 03:12 03:24 Temperature 98.4 F Pulse Rate 69 Respiratory 18 Rate Blood Pressure 112/75 O2 Sat by Pulse 98 Oximetry ED Medical Decision Making - Lab Data Result diagrams: 05/22/17 03:49 05/22/17 03:49 - Medical Decision Making Discussed plan of care with patient including Pyridium for the dysuria antibiotics. Critical care attestation.: If time is entered above; I have spent that time in minutes in the direct care of this critically ill patient, excluding procedure time. ED Disposition Clinical Impression: Dysuria Disposition: DC-01 TO HOME OR SELFCARE Is pt being admited?: No Does the pt Need Aspirin: No Condition: Stable Instructions: Dysuria (ED) Additional Instructions: Patient told to return to [facility] department if his symptoms are worse. Prescriptions: Cephalexin [Keflex] 500 mg PO Q8HR #21 cap Phenazopyridine [Pyridium] 100 mg PO TID 2 Days #6 tab Referrals: VALERIY SCHWARTZ JR, MD [Staff Physician] - 3-5 Days Time of Disposition: 07:13
[2017-05-22 08:52] VITALS: BP 122/72
== END 2017-05-22 08:51 | disposition home or self-care (01) ==
LOC: ED 03:12
DX: R30.0 Dysuria (principal)
CPT/HCPCS: 36415; 80048; 81001; 84703; 85025; 99283

== ENCOUNTER 2017-07-26 10:57 | Emergency (ER) | payer MEDICAID ==
[2017-07-26 11:04] VITALS: BP 115/68
--- NOTE | 2017-07-26 11:38 | Emergency Department Report ---
Chief Complaint: Extremity Injury, Lower Stated Complaint: RIGHT LEG PAIN Time Seen by Provider: 07/26/17 11:28 - Exam Vital Signs: Vital Signs 07/26/17 11:01 Temperature 98.1 F Pulse Rate 70 Respiratory 16 Rate Blood Pressure 115/68 O2 Sat by Pulse 98 Oximetry MSE screening note: Focused history and physical exam performed. Due to findings the following was ordered: Ms. Augustine presents for STD check. She was exposed to chlamydia. She denies leg pain which was her initial complaint. She was referred to [facility] and [facility] dept. NO medical emergency exists which needs further evaluation or treatment. ED Disposition for CATE Clinical Impression: STD exposure Disposition: - TO HOME OR SELFCARE Condition: Stable Instructions: Sexually Transmitted Diseases (ED) Referrals: [facility] [Outside] - 3-5 Days [facility] [Outside] - 3-5 Days
== END 2017-07-26 11:40 | disposition home or self-care (01) ==
LOC: ED 10:57
DX: M79.604 Pain in right leg (principal); Z53.21 Procedure and treatment not carried out due to patient leaving prior to being seen by health care provider

== ENCOUNTER 2019-01-03 10:22 | Emergency (ER) | payer SELFPAY ==
[2019-01-03 11:10] VITALS: BP 128/66
--- NOTE | 2019-01-03 11:19 | Emergency Department Report ---
Chief Complaint: Medical Clearance Stated Complaint: Time Seen by Provider: 01/03/19 11:16 - HPI History of Present Illness: This is a 29 y.o. F. that presents to the ER for confirmation. Patient states she missed her period this month and took a test that was positive. LMP was 11/20/2018, A1 ectopic. She denies abdominal pain, vaginal bleeding, urinary frequency, urgency, vaginal discharge, or back pain. - Exam Vital Signs: Vital Signs 01/03/19 11:08 Temperature 98.4 F Pulse Rate 114 H Respiratory 18 Rate Blood Pressure 128/66 O2 Sat by Pulse 100 Oximetry MSE screening note: Focused history and physical exam performed. Due to findings the following was ordered: ED Medical Decision Making - Medical Decision Making This is a 29-year-old female that presents to ER for confirmation of . Patient is stable was examined by me. Vitals are stable and in no acute distre ss. She denies vaginal discharge, vaginal bleeding, abdominal pain, urinary symptoms, chest pain, or SOB. This is a non-emergent complaint. There are no signs of miscarriage or infection. Referral to [facility] and clinics for continued care. Instructed to take OTC vitals. At time of discharge, the patient does not seem toxic or ill in appearance. Patient agrees to discharge treatment plan of care. No further questions noted by the patient. ED Disposition for MSE Clinical Impression: Feared complaint without diagnosis Disposition: DC-01 TO HOME OR SELFCARE Is pt being admited?: No Condition: Stable Instructions: (ED) Additional Instructions: Follow up with [facility] from the list below. Referrals: [facility] [Provider Group] - 3-5 Days [facility] [Provider Group] - 3-5 Days [facility] [Other] - 3-5 Days Forms: Work/School Release Form(ED) Time of Disposition: 11:43
== END 2019-01-03 12:09 | disposition left against medical advice (07) ==
LOC: ED 10:22
DX: Z32.01 Encounter for pregnancy test, result positive (principal)
CPT/HCPCS: 99282